=== PATIENT | male | born 1950 | race Caucasian/White ===

== ENCOUNTER 2020-01-22 01:45 | Emergency (ER) | payer OTHER ==
[~2020-01-22] VITALS: Ht 175.3 cm; Wt 81.6 kg
[2020-01-22 02:10] VITALS: BP 120/78
--- NOTE | 2020-01-22 02:10 | Emergency Room Report ---
History of Present Illness General Chief Complaint: Dyspnea/Respdistress Source: Patient Present Illness HPI This is a 69-year-old male who is homeless. He has no past medical history. He is a smoker and an alcoholic. He presents with chief complaint of right hip pain and also shortness of breath. He [address] Right hip been hurting him for several months. He denies any cough or fever. Denies any chest pain. Nothing made it better. Nothing made it worse. He has an armband from [facility] from January 20. He was seen for the same thing. He had a CT head was negative. Labs unremarkable except for alcohol level was 241. He was subsequently discharged. Allergies: Coded Allergies: No Known Allergies (Unverified , 01/22/20) COVID-19 Screening Contact w/high risk pt: No Experienced COVID-19 symptoms?: No COVID-19 Testing performed LEARNING TECHNOLOGIST: No Patient History Past Medical History: see triage record, old chart reviewed Past Surgical History: other Pertinent Family History: none Social History: Reports: alcohol use Immunizations: other Reviewed Nursing Documentation: PMH: Agreed; PSxH: Agreed Nursing Documentation-PMH Past Medical History: No Stated History Review of Systems Eye: Denies: eye pain, blurred vision ENT: Denies: ear pain, nose congestion, throat swelling Respiratory: Reports: shortness of breath; Denies: cough Cardiovascular: Denies: chest pain, palpitations Gastrointestinal: Denies: abdominal pain, diarrhea, nausea, vomiting Musculoskeletal: Reports: joint pain; Denies: back pain Skin: Denies: rash Neurological: Denies: headache, numbness Endocrine: Denies: increased thirst, increased urine Hematologic/Lymphatic: Denies: easy bruising All Other Systems: negative except mentioned in HPI Physical Exam Vital Signs Date Time Temp Pulse Resp B/P (MAP) Pulse Ox O2 Delivery O2 Flow Rate FiO2 01/22/20 01:46 97.9 90 18 120/78 (92) 93 Room Air Vitals unremarkable Sp02 EP Interpretation: reviewed, normal General Appearance: well appearing, no apparent distress, alert, other - sleeping, snoring. No distress. Head: normocephalic, atraumatic Eyes: bilateral eye PERRL, bilateral eye EOMI ENT: hearing grossly normal, normal pharynx Neck: full range of motion, supple, no meningismus Respiratory: chest non-tender, lungs clear, normal breath sounds Cardiovascular #1: regular rate, rhythm, no murmur Gastrointestinal: normal bowel sounds, non tender, no mass, no organomegaly, no bruit, non-distended Musculoskeletal: back normal, normal range of motion, gait/station normal Psychiatric: mood/affect normal Medical Decision Making Homeless Attestation I, The treating physician, Dr Carroll Ramos, has assessed and agrees that patient is medically stable for discharge to an outpatient disposition. Diagnostic Impression: Primary Impression: Alcohol intoxication Qualified Codes: F10.920 - Alcohol use, unspecified with intoxication, uncomplicated Additional Impressions: Dyspnea Qualified Codes: R06.00 - Dyspnea, unspecified Osteoarthritis of right hip Qualified Codes: M16.11 - Unilateral primary osteoarthritis, right hip ER Course This patient presents with alcohol intoxication and hip pain. He did not mention any shortness of breath until I brought it up. No evidence of pneumonia, CHF, PE, dissection to name a few. He is sleeping comfortably. Oxygenation is 95% while he sleeping. Will discharge home. Rhythm Strip Diag. Results EP Interpretation: yes Rate: 88 Rhythm: NSR, no PVC's, no ectopy Chest X-Ray Diagnostic Results Chest X-Ray Diagnostic Results : Chest X-Ray Ordered: Yes # of Views/Limited/Complete: 1 View Indication: Shortness of Breath EP Interpretation: Yes Interpretation: no consolidation, no effusion, no pneumothorax, no acute cardiopulmonary disease Impression: No acute disease Electronically Signed by: Carroll Ramos MD Last Vital Signs Date Time Temp Pulse Resp B/P (MAP) Pulse Ox O2 Delivery O2 Flow Rate FiO2 01/22/20 01:46 97.9 90 18 120/78 (92) 93 Room Air Status: improved Disposition: HOME, SELF-CARE Condition: Stable Scripts Ibuprofen* (MOTRIN*) 600 Mg Tablet 600 MG ORAL Q6H PRN for For Pain, #30 TAB 0 Refills Prov: Carroll Ramos MD 01/22/20 Additional Instructions: Abstain from alcohol. Follow-up with your doctor in 7 days. Return if symptoms worsen. Carroll Ramos MD Jan 22, 2020 02:10
--- NOTE | 2020-01-22 02:10 | NUR ---
ED Nurse Note: Patient brought into ED from the streets by GARRY DUONG 31 for c/o shortness of breath. He is also c/o R hip pain. He denies any fall or trauma to his hip. He is breathing normal at this time. Patient has wristband from [facility] visit on 01/21/20 still intact on wrist, he states "they did nothing for me". He is aaox4. Patient does admit to using alcohol today. He is unkempt and disheveled.
[2020-01-22] MEDS ORDERED: Ketorolac 60mg Inj IM ONE (02:15)
[2020-01-22] MEDS ORDERED: IBUPROFEN600 M1 ORAL (02:32)
[2020-01-22 04:00] VITALS: BP 121/74
--- NOTE | 2020-01-22 04:00 | NUR ---
ED Nurse Note: Patient is sleeping soundly at this time, NAD noted. Vital signs are stable. Breathing is normal.
[2020-01-22 05:10] VITALS: BP 120/71
--- NOTE | 2020-01-22 05:10 | NUR ---
ER DISCHARGE NOTE: Patient is cleared to be discharged per ERMD, pt is aox4, on room air, with stable vital signs. pt was given dc and prescription instructions, pt was able to verbalize understanding, pt id band removed. pt is able to ambulate with steady gait. pt took all belongings. pt provided with food and water. he is wearing weather appropriate clothing.
--- NOTE | 2020-01-22 17:19 | Diagnostic Imaging Report ---
Indication: Shortness of breath Technique: One view of the chest Comparison: none Findings: The heart is enlarged. There is some patchy opacity at the left lateral lung base. Lungs and pleural spaces are clear otherwise. Impression: Patchy left lateral basilar opacity, may reflect some focal infiltrate or atelectasis. Cardiomegaly
== END 2020-01-22 05:10 | disposition home or self-care (01) ==
LOC: EDBD 01:45 → EMR 02:43
DX: F10.129 Alcohol abuse with intoxication, unspecified (principal); Y90.8 Blood alcohol level of 240 mg/100 ml or more; R06.00 Dyspnea, unspecified; M16.11 Unilateral primary osteoarthritis, right hip; Z59.0 Homelessness; F17.200 Nicotine dependence, unspecified, uncomplicated; I51.7 Cardiomegaly
CPT/HCPCS: 71045; 96372; 99283